=== PATIENT | female | born 2000 | race Caucasian/White ===

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

== ENCOUNTER 2022-11-19 18:25 | Emergency (ER) | payer OTHER ==
[2022-11-19 18:35] VITALS: BP 122/72; PULSE 72; RESP 18; TEMP 98.5; BMI 25.6
[2022-11-19] MEDS ORDERED: CEFTRIAXONE 2,000 MG in DEXTROSE 5%-WATER - 50 ML IVPB ONE (18:38)
[2022-11-19] MEDS ORDERED: DIPHTH,PERTUSS(ACELL),TET 0.5 ML DISP.SYRIN IM ONE ×2 (18:42→19:02)
== END 2022-11-19 20:05 | disposition home or self-care (01) ==
LOC: FER 18:25
PROC: 3E03329 Introduction of Other Anti-infective into Peripheral Vein, Percutaneous Approach (ICD-10-PCS; principal; 2022-11-19)
PROC: 3E0234Z Introduction of Serum, Toxoid and Vaccine into Muscle, Percutaneous Approach (ICD-10-PCS; 2022-11-19)
DX: S60.511A Abrasion of right hand, initial encounter (principal); L03.113 Cellulitis of right upper limb; W55.03XA Scratched by cat, initial encounter
CPT/HCPCS: 73130-TC-RT-FY; 90715; 99284-25